=== PATIENT | female | born 1975 | race Hispanic/Latino ===

== ENCOUNTER 2018-01-28 15:11 | Outpatient (CLI) | payer BC ==
--- NOTE | 2018-01-28 18:12 | ULT ---
LEFT BREAST DIAGNOSTIC ULTRASOUND: 01/28/18 INDICATION: Followup left breast lesion at the 9 o'clock position. FINDINGS: There is a cluster of cysts that corresponds to the mammographic abnormality seen on the recent diagn ostic examination. The cluster of cysts measures approximately 6 x 6 mm in size. There are numerous a dditional cysts seen within the inner aspect of the left breast. On the mammogram, there were multipl e well circumscribed equal density lesions seen bilaterally. Multiple seen bilaterality suggests roberta gnity. IMPRESSION: The abnormality on the left breast mammogram within the left breast 9 o'clock position 3 cm from the nipple corresponds to a 6 mm cluster of cysts. Patient is counseled on the findings prior to leaving the department. POS: OFF
--- NOTE | 2018-01-28 18:19 | ULT ---
ULTRASOUND PELVIC ULTRASOUND TRANSVAGINAL DOPPLER DUPLEX: 01/28/18 HISTORY: 42-year-old female with ICD-10: Z31.69, infertility counseling. TECHNIQUE: Transabdominal transducer used to evaluate intrapelvic contents using the urinary bladder as an acous tic window. Endovaginal transducer used to visualize intrapelvic contents in greater detail. Color fl ow Doppler and Pulsed Doppler spectral waveform analysis of ovaries. FINDINGS: Uterus: 7.5 x 5 x 5.5 cm. Endometrial stripe: 1 cm (10 mm). Right ovary: 3.5 x 1.5 x 2 cm. Left ovary: 3.5 x 1.5 x 2.5 cm. Multiple prominent bilateral ovarian follicles located peripherally. No uterine leiomyoma is identified. Blood flow is demonstrated in both ovaries. No ovarian cyst (defined as 2 cm or greater) is identified. Minimal free fluid is in the cul-de-sac. IMPRESSION: 1. Multiple bilateral prominent ovarian follicles, especially in the right ovary. 2. Otherwise negative. elizabet [] POS: SHANE
== END 2018-01-28 15:12 | disposition home or self-care (01) ==
LOC: BICMAMMO 15:11
PROVIDERS: ATTEND Family Medicine
DX: Z12.31 Encounter for screening mammogram for malignant neoplasm of breast (principal); N63.24 Unspecified lump in the left breast, lower inner quadrant; Z80.3 Family history of malignant neoplasm of breast
CPT/HCPCS: 76856; 77063; 77067; G0279